=== PATIENT | male | born 1935 | race Caucasian/White ===

== ENCOUNTER 2021-06-12 11:32 | Day surgery (SDC) | payer MEDICARE, OTHER, SELFPAY ==
--- NOTE | 2021-06-12 11:49 | EKG12_ITS ---
Test Reason : PRE OP Blood Pressure : / mmHG Vent. Rate : 070 BPM Atrial Rate : 070 BPM P-R Int : 176 ms QRS Dur : 088 ms QT Int : 402 ms P-R-T Axes : -03 -17 058 degrees QTc Int : 434 ms Normal sinus rhythm with sinus arrhythmia Normal ECG Confirmed by KATRINA SORIA, CHRISTI ([id number]), commissioning editor TAMMIE FIGUEROA ([id number]) on 06/26/2021 8:52:26 AM Referred By: Reno Eugene Confirmed By:CHRISTI HERNDON MD
[2021-06-12 12:03] VITALS: BP 157/92; PULSE 71; RESP 16; TEMP 36.2; O2SAT 95; BMI 25.7
[2021-06-12] MEDS: Lactated Ringers 1,000 ML 15 ML IV (12:15)
--- NOTE | 2021-06-12 13:39 | PCM.HP.STD ---
HPI - General HPI Marichuy GRACE, is a 85 M who presents for a TURP for retention of urine also a protate biopsy for elevated psa of 40 PFSH Medical History Arthritis High cholesterol History of stress test Hypertension Indwelling urethral catheter present Injury of back Injury of head and neck Leg cramps Non-smoker Prostate disease Wears glasses Home Medications amlodipine 5 mg PO DAILY 06/04/21 [History Last Taken 06/12/21 07:30] ascorbic acid (vitamin C) [Vitamin C] 1,000 mg PO DAILY 06/04/21 [History Last Taken 06/11/21] cholecalciferol (vitamin D3) [Vitamin D3] 25 mcg PO DAILY 06/04/21 [History Last Taken 06/11/21] lutein 10 mg PO DAILY 06/04/21 [History Last Taken 06/11/21] magnesium 400 mg PO DAILY 06/04/21 [History Last Taken 06/11/21] potassium 99 mg PO DAILY 06/04/21 [History Last Taken 06/11/21] vitamin B complex 1 tab PO DAILY 06/04/21 [History Last Taken 06/11/21] vitamin E 100 unit PO DAILY 06/04/21 [History Last Taken 06/11/21] Allergy/AdvReac Type Severity Reaction Status Date / Time No Known Allergies Allergy Verified 06/12/21 12:00 Surgical History Hx of tonsillectomy Social History Smoking Status: Never smoker Vital Signs Vital Signs Vital Signs: 06/12/21 12:03 Temperature 97.2 F L Temperature Source Rectal Pulse Rate 71 Respiratory Rate 16 Respiratory Pattern Normal Blood Pressure 157/92 H Blood Pressure Mean 113 Blood Pressure Source Monitor Blood Pressure Position Semi-Fowlers Blood Pressure Location Left Arm Pulse Ox 95 Oxygen Delivery Method Room Air Weight Weight: 68 kg Body Mass Index (BMI) 25.7
--- NOTE | 2021-06-12 13:40 | PCM.DC ---
Discharge Instructions Diet Discharge Diet: No restrictions Activity Discharge Activity: Return to Normal Activity and May Not Drive (while taking narcotic pain medications.) Dressing / Incision Call your doctor if you observe: Fever of 101 or Higher Follow Up Care Please Follow Up With: Reno Eugene MD When: Call [phone] for an appointment Test Results: Test results from this visit will be discussed in further detail at your follow-up appointment, if applicable. Discharge Plan Admission Primary Reason for Your Visit: TURP, elevated PSA and prostate biospy Attending Provider: Reno Eugene Primary Care Provider: Pawan Skinner Discharge Orders/Prescriptions Prescriptions: Continued vitamin E 100 unit Capsule 100 unit PO DAILY RF: 0 amlodipine 5 mg tablet 5 mg PO DAILY RF: 0 potassium 99 mg Tablet 99 mg PO DAILY RF: 0 ascorbic acid (vitamin C) [Vitamin C] 500 mg Tablet 1,000 mg PO DAILY RF: 0 vitamin B complex Tablet 1 tab PO DAILY RF: 0 magnesium 250 mg Tablet 400 mg PO DAILY RF: 0 cholecalciferol (vitamin D3) [Vitamin D3] 25 mcg (1,000 unit) Tablet 25 mcg PO DAILY RF: 0 lutein 10 mg Tablet 10 mg PO DAILY RF: 0 Discontinued aspirin 81 mg Capsule 81 mg PO DAILY RF: 0 Referrals / Follow Up: Reno Eugene MD [STAFF PHYSICIAN] - Pawan Skinner MD [Primary Care Provider] - Disposition Disposition (needs filled in before D/C Order can be placed): Home, Self Care
--- NOTE | 2021-06-12 14:15 | PROS_PTH ---
PATIENT: FRITZ GRACE LOC: [facility] [place] U#:[id number] AGE/SX: 85/M ROOM: RE06/12/[address]: Dr. Reno Eugene MD : [id number] BED: DIS: 06/12/2021 SPEC #: [id number] RECD: 06/16/21 09:32 STATUS: LISA MASON #: [id number] LOCO: 06/12/21 14:[address]: Reno Eugene DEPT: SURGICAL PATHOLOGY RECD BY: Amairani Fournier ENTERED: 06/16/21 09:32 SP TYPE: TURP OTHR DR: Dr. Pawan Skinner MD Tissues: A - Prostate, NOS B - Prostate, NOS Procedures: Surgery Specimen Level IV HEADER OPERATION: Cysto, TUR prostate, Olympus, prostate biopsy PRE-OP DIAGNOSIS: BPH bladder outlet obstruction and elevated PSA TISSUE SUBMITTED: A ? Prostate biopsy, B ? Prostate tissue MICROSCOPIC DIAGNOSIS A. Prostate, core biopsy: Adenocarcinoma. Fredi grade: 7 (4+3) Cores involved: 3/3 Tissue involved: 65% Greatest tumor length: 11 millimeters Perineural invasion: Present, multifocal. B. Prostate, TUR: Benign nodular hyperplasia, glandular and stromal types. Chronic inflammation with focal acute inflammation. AM:osiel 06/17/2021 COMMENT Case has been reviewed in consultation with Dr. [place] who concurs with the above diagnosis. IDC:[email or web address] MICROSCOPIC DESCRIPTION Slides are reviewed. GROSS DESCRIPTION A - Received in fixative is one container labeled with the patient's name and designated prostate biopsy. The specimen consists of three elongated fragments of lindquist soft tissue each measuring 1.5 cm in length and 0.1 cm in diameter. The specimen is totally submitted in one cassette. B - Received is one container labeled with the patient's name and designated prostate tissue. The specimen consists of multiple irregular fragments of pink-lindquist, rubbery, soft tissue that in aggregate weigh 18.5 gm and measure in aggregate 7 x 6 x 2 cm. Spray Pilot tissue is submitted in ten cassettes. / SJ:osiel 06/16/21 TC:0 CPT: 00304 x2
--- NOTE | 2021-06-12 15:13 | OP.PCM_ITS ---
Report of Operation Date of Procedure: 06/12/21 Pre-Operative Diagnosis: bph with obstruction elevated psa Post-Operative Diagnosis: same Surgery/Procedure Performed:: turp and prostate biopsy Description of Surgical Findings:: In the preoperative setting I discussed with the patient how the surgery would be done with expect afterwards. We discussed how a prostate resection is done and we discussed the risk of the surgery including, bleeding, infection, retrograde ejaculation, changes with ejaculation or intercourse,. We discussed the possibility that the resection of the prostate may not alleviate his urinary symptoms. We discussed the small risk of developing scar tissue along the urethral channel and strictures. We also discussed the chance of the prostate could grow back and he may need further surgery or treatment in the future for prostate problems. Patient was taken back to the operating room, timeout procedure was performed, he was identified and marked and placed on the operating room table. He underwent general anesthesia. He was placed in dorsolithotomy position. Penis and testicles were prepped and draped in usual sterile fashion. Went into the bladder using the visual obturator with a resectoscope. Once inside the bladder identified the right and left ureteral orifice. I then identified the prostate and the anatomy of the prostate. I marked out the area of the sphincter and the verumontanum was identified. I then proceeded with the prostate resection first resected the median lobe. And then resected the right lobe of the prostate. Then to resect the left lobe of the prostate. I then resected the apical tissue of the prostate. This was a complete resection of all obstructive tissue to improve voiding and relieve obstruction. I then made sure that there was no injury to the sphincter or the verumontanum was still intact. At the end of the resection all the chips were Ellik out of the bladder. I then a double gloved was placed into the prostate on examination prostate rig ht side of the prostate was examined and then a biopsy needle was guided to the double gloved and finger guided biopsy was performed of the prostate. Biopsies were taken of the left prostate and the right prostate and these were sent off a separate specimen. I then went back into the bladder with cystoscopy identified the left and right ureteral orifice and these were confirmed to be in good position and effluxing and not injured. The resectoscope was removed, a 20 Slovenian catheter was placed. And the urine was fairly light pink color and draining normally. He was taken back to the PACU in good condition. Surgeon: Jabier Type of Anesthesia: General Drains: 20 fr Admit VTE Documentation VTE Present on Admission: No VTE Mechan Device Prophylaxis: SCD's VTE Pharm Prophylaxis ordered?: No
[2021-06-12 15:20] VITALS: BP 151/93; BP 157/92; PULSE 65; RESP 16; TEMP 36; O2SAT 95
[2021-06-12 15:30] VITALS: BP 157/92; BP 164/92; PULSE 67; RESP 16; O2SAT 95
[2021-06-12 15:45] VITALS: BP 143/88; BP 157/92; PULSE 65; RESP 16; O2SAT 94
[2021-06-12 16:00] VITALS: BP 139/87; BP 157/92; PULSE 63; RESP 16; TEMP 36.1; O2SAT 98
[2021-06-12 17:00] VITALS: BP 140/82; BP 157/92; PULSE 69; RESP 16; O2SAT 98
== END 2021-06-12 17:00 | disposition home or self-care (01) ==
LOC: SDC 11:38 → AC 11:41
PROVIDERS: PCP Family Medicine; Referring Provider Urology; Visit Provider Urology
PROC: (CPT 52601; principal; 2021-06-12 14:05)
DX: N40.1 Benign prostatic hyperplasia with lower urinary tract symptoms (principal); N13.8 Other obstructive and reflux uropathy; M19.90 Unspecified osteoarthritis, unspecified site; E78.00 Pure hypercholesterolemia, unspecified; I10 Essential (primary) hypertension; Z96.0 Presence of urogenital implants; Z79.899 Other long term (current) drug therapy; Z79.82 Long term (current) use of aspirin
CPT/HCPCS: 52601; 55700; 88305; 93005; J7120; J2405

== ENCOUNTER 2021-08-04 08:49 | Outpatient (CLI) | payer MEDICARE, SELFPAY ==
--- NOTE | 2021-08-04 08:56 | NM_ITS ---
CLINICAL: 85-year-old male with history of carcinoma of the prostate. WHOLE BODY 99m Tc MDP RADIONUCLIDE BONE SCINTIGRAPHY COMPARISON: None available FINDINGS: Following the intravenous administration of 24.5 mCi of 99m Tc MDP, whole body bone images reveal: 1. Increased radiopharmaceutical concentration is identified in the glenohumeral and acromioclavicular compartments of the right shoulder, sternoclavicular departments of both shoulders, fourth and ninth thoracic vertebra, fourth and fifth lumbar vertebra, left wrist, right hand, the right knee, right ankle articulation. 2. The remaining skeletal structures are scintigraphically unremarkable with normal-appearing renal images and urinary bladder activity identified. Mild increased tracer uptake is observed in the greater trochanteric aspect of the left proximal femur most consistent with periostitis and/or trochanteric bursitis. NM/Bone Scan Whole Body IMPRESSION: 1. The increases in radiopharmaceutical concentration defined in the thoracic and lumbar spine, bilateral shoulders, left wrist, right hand, the right knee and right ankle articulation are most consistent with degenerative arthritis. 2. There is no definitive typical scintigraphic evidence of diffuse axial skeletal metastatic disease on the current examination. Electronically Signed: Anthony Denise DO at 22:25 EST ,
== END 2021-08-04 23:59 | disposition home or self-care (01) ==
PROVIDERS: PCP Family Medicine; Referring Provider Urology; Visit Provider Urology
DX: C61 Malignant neoplasm of prostate (principal)
CPT/HCPCS: 36415; 78306; 84153; A9503

== ENCOUNTER 2021-09-01 12:30 | Outpatient (CLI) | payer MEDICARE, SELFPAY ==
--- NOTE | 2021-09-01 14:50 | CT_ITS ---
INDICATION: MALIGNANT NEOPLASM OF PROSTATE EXAMINATION: CT Abdomen And Pelvis W/ Contrast Injection TECHNIQUE: Helically acquired images were obtained of the abdomen and pelvis after IV contrast. A radiation dose optimization technique was used for this scan. IV Contrast dosage and agent: Oral and amp; IV Gastrografin and amp; 100mL [id number]-300 Oral contrast: Yes. COMPARISON: None. FINDINGS: Visualized lung bases: Unremarkable Liver: Unremarkable Gallbladder: Few small intraluminal stones seen. Spleen: Unremarkable Pancreas: Unremarkable Adrenal Glands: Unremarkable Kidneys: Scattered too small to characterize subcentimeter hypodensities bilaterally. Mild bilateral hydroureteronephrosis. No obstructing stone. Vasculature: Moderate aortoiliac atherosclerotic disease. GI Tract: Large amount retained stool in colon. Lymphadenopathy: Prominent bilateral mesial rectal lymph nodes, for example a 7 mm node on the right (image 86, series 2). 9 mm enhancing left external iliac node. Peritoneum: No ascites. Bladder: Distended with lobulations and few diverticula. Reproductive organs: The prostate gland is enlarged and heterogeneous. Bones/Soft tissues: There are diffuse degenerative changes of the spine. Multilevel grade 1 spondylolisthesis of the lumbar spine. CT/Abdomen/Pelvis WITH Contrast IMPRESSION: Findings consistent with known prostate cancer causing bladder outlet obstruction as well as upstream mild bilateral hydroureteronephrosis. There are prominent mesorectal and left external iliac lymph nodes concerning for local spread of disease. There is likely involvement of the bilateral seminal vesicles. No evidence of distant metastatic disease in the lungs or skeleton. Cholelithiasis. Multilevel grade 1 spondylolisthesis of the lumbar spine. Large amount of retained stool in the colon. Electronically Signed: Crow Meyers MD at 0:10 EDT ,
[2021-09-01 14:51] LABS: CREATININE FINGERSTICK 0.7 mg/dL (0.70-1.30); EGFR FINGERSTICK > 60.0000 mL/min (>60)
== END 2021-09-01 23:59 | disposition home or self-care (01) ==
LOC: CT 12:30
PROVIDERS: PCP Family Medicine; Referring Provider Urology; Visit Provider Urology
DX: C61 Malignant neoplasm of prostate (principal)
CPT/HCPCS: 74177; Q9967

== ENCOUNTER → 2024-05-22 | Outpatient (CLI) | payer MEDICARE, SELFPAY ==
[2024-05-22 14:59] LABS: Anion Gap 5 (5-15); BUN 24 mg/dL (7-18); BUN/Creat Ratio 18.9 RATIO (10-20); Calcium,Total 9.7 mg/dL (8.5-10.1); Chloride 105 mmol/L (98-107); Creatinine, Serum 1.27 mg/dL (0.70-1.30); EST Glomerular Filtration Rate 57 mL/min (>60); Est Glom Filt Rate - Afr Amer 69 mL/min (>60); Glucose 110 mg/dL (74-106); Potassium 4.6 mmol/L (3.5-5.1); Sodium Level 136 mmol/L (136-145)
== END | disposition home or self-care (01) ==
PROVIDERS: PCP Family Medicine; Referring Provider Urology; Visit Provider Urology
DX: C61 Malignant neoplasm of prostate (principal)
CPT/HCPCS: 36415; 80048